=== PATIENT | male | born 1965 | race Caucasian/White ===

== ENCOUNTER → 2017-02-27 | Outpatient (CLI) | payer OTHER ==
[~2017-02-27] MED LIST: ATORVASTATIN CA40 MG PO; FLOMAX 0.4MG C0.4 MG PO; GEMFIBROZIL600 M1 PO; LISINOPRIL10 MG PO; NORCO 325 MG-51 TAB PO; PERCOCET 10 MG1 EACH PO; PERCOCET 5/3251 EACH PO; PHENERGAN 25MG.25 M1 PO
--- NOTE | 2017-03-03 09:46 | RADIOLOGY REPORT PS360 ---
CHEST(2 VIEWS-NOT PORTABLE) HISTORY: LOCALIZED EDEMA ORDERING PHYSICIAN: Tank Lopez MD PATIENT AGE: 51 years COMPARISON: None available FINDINGS: The cardiomediastinal silhouette and pulmonary vascularity are within normal limits. The lungs are clear without infiltrates, suspicious nodules, or pleural effusions. No acute bony abnormalities. IMPRESSION: Negative chest, no acute finding
== END ==
LOC: RAD 18:29
DX: R60.0 Localized edema (principal); Z68.41 Body mass index [BMI] 40.0-44.9, adult

== ENCOUNTER → 2017-03-10 | Outpatient (CLI) | payer OTHER ==
--- NOTE | 2017-03-10 09:46 | RADIOLOGY REPORT PS360 ---
US RUQ-(ABD LTD)1ORGAN/QUAD/FU HISTORY: ELEVATED LIVER FUNCTION . Abnormal LFTs Patient Age: 51 years: Male Ordering Physician: Tank Lopez MD TECHNIQUE: Ultrasound right upper quadrant /ar COMPARISON :Nontwenty 13 ultrasound right upper quadrant FINDINGS Difficult exam due to body habitus . Pancreas:. Not well seen but grossly unremarkable overlying gas and body habitus limits visualization of pancreas. Liver:. Less than optimal visualization. However no focal lesions nor biliary ductal dilatation identified.. Mild diffuse fatty change throughout liver. Gallbladder:. No definitive gallstone. Gallbladder normal size... Right kidney.: 10.3 cm length. Normal size. No hydronephrosis nor mass. Cortex adequate maintained. IMPRESSION: *Difficult, limited exam due to body habitus and overlying gas 1. Less than optimal visualization liver-but again note diffuse Fatty changes throughout liver similar to previous 2012 study.. No focal lesions evident. 2. Gallbladder. No gallstones evident by ultrasound. \Again difficult to optimally visualize (Note there was suspicion of a small stone towards neck of gallbladder on September 2014 CT however this was not identified on today's ultrasound) 3. Limited visualization of pancreas but grossly unremarkable.
--- NOTE | 2017-03-10 21:50 | RADIOLOGY REPORT PS360 ---
PROCEDURE: 2-D M-mode and color Doppler study INDICATIONS FOR THE TEST: Chest pain COPD Heart Murmur Tobacco Smoking Palpitations Fatigue Syncope EdemaX HypertensionXDiabetes MellitusX Rheumatic Fever SOB AHN Obesity HyperlipidemiaX Family History HD Additional History PATIENT INFORMATION HEIGHT: 68 WEIGHT:270 GENDER: Male B/P:130/80 2-D/M-MODE INTERPRETATION: 2-D MEASUREMENTS OBSERVED VALUES IN CMS Right Ventricular Dimension (RVDd) 1.0 Interventricular Septum (Thickness)(IVsd) .8 Left Ventricular Internal Dimensions(LVIDd) 5.7 Left Ventricular Posterior Wall (Thickness)(LVPWd) .8 Aortic Root 3.3 Aortic Cusp Separation 1.8 Left Atrial Dimensions (LAD) 3.8 2D 1. Left atrium is mildly enlarged, left ventricle is normal size, there is borderline concentric left ventricular hypertrophy, visually estimated ejection fraction 55% with no obvious regional wall motion abnormality. 2. The right atrium is normal size, right ventricle is mildly enlarged with normal contractility. 3. The aortic valve is minimally thickened and fibrosed. 4. The mitral and tricuspid valve are grossly normal. 5. The pulmonic valve is poorly visualized. 6. No significant pericardial effusion noted DOPPLER INTERROGATION: Doppler interrogation of the aortic, mitral and tricuspid valvular presence of mild mitral and tricuspid regurgitation, tricuspid and jet velocity insufficient for calculation of the right ventricular systolic pressure, diastolic parameters are within normal range. CONCLUSION: 1. Mildly enlarged left atrium, normal left ventricular size, borderline concentric left ventricular hypertrophy, visually estimated ejection fraction 55% with no obvious regional wall motion abnormality, diastolic parameters are within normal range. 2. Mild mitral and tricuspid regurgitation. 3. No significant pericardial effusion noted.
== END ==
LOC: RAD 09:00 → RT 14:30
DX: R79.89 Other specified abnormal findings of blood chemistry (principal); R60.0 Localized edema